=== PATIENT | female | born 1975 | race Caucasian/White ===

== ENCOUNTER 2019-07-07 10:03 | Outpatient (CLI) | payer BC, OTHER ==
--- NOTE | 2019-07-08 14:55 | XRAY Report ---
Reason: PAIN IN LEFT KNEE Procedure Date: 07/07/2019 Accession Number: [id number] / [id number] Procedure: XRS - Knee 4 View LT CPT Code: FULL RESULT: EXAM: LEFT KNEE RADIOGRAPHY EXAM DATE: 07/07/2019 10:24 AM. CLINICAL HISTORY: Pain in left knee. Twisting injury in April with reinjury 6 weeks later. COMPARISON: None. TECHNIQUE: 4 views. FINDINGS: Bones: No acute fracture or bony lesion. Joints: Normal alignment. No significant joint narrowing. No knee effusion. No dislocation. Soft Tissues: Normal. No soft tissue swelling. IMPRESSION: 1. No osseous abnormalities. [facility]
== END 2019-07-07 10:04 | disposition home or self-care (01) ==
LOC: DI.S 10:03
PROVIDERS: ATTEND Nurse Practitioner Family
DX: M25.562 Pain in left knee (principal)